=== PATIENT | female | born 1975 | race Caucasian/White ===

== ENCOUNTER 2017-04-05 18:44 | Emergency (ER) | payer MEDICAID, OTHER ==
[2017-04-05 18:58] VITALS: BP 130/83
--- NOTE | 2017-04-05 19:17 | EDM.PDOC ---
ED HPI GENERAL MEDICAL PROBLEM - General Chief Complaint: Lower Extremity Injury/Pain Stated Complaint: right lower extremity pain; chronic Time Seen by Provider: 04/05/17 18:50 Source of Information: Reports: Patient, Family, RN, RN Notes Reviewed History Limitations: Reports: No Limitations - History of Present Illness INITIAL COMMENTS - FREE TEXT/NARRATIVE: Patient presents to the emergency room at [facility] with chronic right ankle pain. The patient states her pain began about 5 months ago. The patient denies any injury or trauma to the right ankle. The patient states that she has been seen by her PCP who had the patient attend physical therapy. The patient states that "I've just been dealing with the pain and nothing has really been done with my ankle." The patient does have a history of previous right foot surgery when she was a teenager. The patient states that physical therapy did not help. The patient states that her pain has progressively gotten much worse over the last 6 days. The patient states that she has developed some sort of a lump over her Achilles tendon. The patient states the pain feels like somebody is squeezing or pinching her Achilles tendon. Onset: Other (5 months ago) Duration: Constant Location: Reports: Lower Extremity, Right Quality: Reports: Sharp, Stabbing Severity: Severe Improves with: Reports: Rest Worsens with: Reports: Movement Context: Denies: Activity, Exercise, Lifting, Trauma Associated Symptoms: Reports: No Other Symptoms Right Ankle Pain Score (Numeric/FACES): 9 - Related Data Allergies Allergy/AdvReac Type Severity Reaction Status Date / Time bupropion HCl Allergy Hives Verified 04/05/17 18:50 [From Wellbutrin] gabapentin Allergy Anxiety Verified 04/05/17 18:50 varenicline [From Chantix] Allergy Other Verified 04/05/17 18:50 Home Meds: Home Meds Levothyroxine [Synthroid] 100 mcg PO ACBREAKFAST 06/05/15 [History] Cyclobenzaprine [Flexeril] 10 mg PO DAILY 04/05/17 [History] Hydrocodone/Acetaminophen [Hydrocodon-Acetaminophn 10-325] 1 tab PO TID [History] Lidocaine 5% [Lidoderm 5%] 700 mg TOP DAILY PRN 04/05/17 [History] Omeprazole [Omeprazole] 20 mg PO DAILY 04/05/17 [History] Sertraline HCl [Sertraline HCl] 100 mg PO DAILY 04/05/17 [History] Zolpidem Tartrate [Zolpidem Tartrate] 5 mg PO BEDTIME PRN 04/05/17 [History] oxyCODONE HCl [Oxycontin] 20 mg PO BID 04/05/17 [History] Past Medical History Musculoskeletal History: Reports: Arthritis - Past Surgical History Neurological Surgical History: Reports: Spinal Fusion Musculoskeletal Surgical History: Reports: Knee Replacement, Other (See Below) Other Musculoskeletal Surgeries/Procedures:: Ankle pain, back surgery Social & Family History - Tobacco Use Smoking Status *Q: Current Every Day Smoker Years of Tobacco use: 18 Packs/Tins Daily: 1 Review of Systems - Review of Systems Review Of Systems: See Below Constitutional: Denies: Chills, Fever, Weakness Respiratory: Denies: Shortness of Breath, Cough Cardiovascular: Denies: Chest Pain, Palpitations Musculoskeletal: Reports: Foot Pain (right ankle pain) Skin: Reports: No Symptoms Neurological: Reports: No Symptoms. Denies: Headache, Numbness, Paresthesia, Tingling Trauma Exam - Physical Exam Exam: See Below Exam Limited By: No Limitations General Appearance: Reports: Alert, No Apparent Distress Respiratory Exam: Reports: No Respiratory Distress, Lungs Clear, Normal Breath Sounds Cardiovascular: Reports: Normal Peripheral Pulses, Regular Rate, Rhythm Extremities: Pain with Movement, Tenderness, Other (mass over the achilles tendon right foot; tender to palpation; patient is able to ambulate, but with pain) Neurologic: Reports: Alert, Oriented x 3 Skin: Reports: Normal Color, Warm/Dry - Rashmi Coma Score Best Eye Response (Huguenot): (4) Open Spontaneously Best Verbal Response (Rashmi): (5) Oriented Best Motor Response (Huguenot): (6) Obeys Commands Huguenot Total: 15 Course - Vital Signs Last Recorded V/S: Last Vital Signs Temp 36.5 C 04/05/17 18:54 Pulse 91 04/05/17 18:54 Resp 16 04/05/17 18:54 BP 130/83 04/05/17 18:54 Pulse Ox 100 04/05/17 18:54 - Orders/Labs/Meds Orders: Active Orders 24 hr Category Date Time Status Ankle Min 3V Rt [CR] Stat Exams 04/05/17 19:17 Taken DME for Discharge [COMM] Routine Oth 04/05/17 20:02 Ordered - Radiology Interpretation Free Text/Narrative:: See scanned report in the EMR Departure - Departure Time of Disposition: 19:59 Disposition: Home, Self-Care 01 Condition: fair Clinical Impression: Tendonitis, Achilles, right - Discharge Information Instructions: Achilles Tendinitis Referrals: Misty Sapp MD [Primary Care Provider] - Forms: ED Department Discharge Additional Instructions: 1. Stay well hydrated and rest 2. Take your home medications as prescribed 3. Use walker boot at all times 4. See your Primary; would recommend an MRI for further evaluation - Problem List Review Problem List Initiated/Reviewed/Updated: Yes - My Orders Last 24 Hours: My Active Orders 04/05/17 19:17 Ankle Min 3V Rt [CR] Stat 04/05/17 20:02 DME for Discharge [COMM] Routine - Assessment/Plan Last 24 Hours: My Active Orders 04/05/17 19:17 Ankle Min 3V Rt [CR] Stat 04/05/17 20:02 DME for Discharge [COMM] Routine
== END 2017-04-05 20:24 | disposition home or self-care (01) ==
LOC: VM.ED 18:44
DX: M76.61 Achilles tendinitis, right leg (principal); M19.90 Unspecified osteoarthritis, unspecified site; F17.210 Nicotine dependence, cigarettes, uncomplicated; Z88.8 Allergy status to other drugs, medicaments and biological substances; Z79.899 Other long term (current) drug therapy; Z96.659 Presence of unspecified artificial knee joint
CPT/HCPCS: 73610-RT; 99283

== ENCOUNTER 2021-09-06 13:12 | Emergency (ER) | payer MEDICAID, OTHER ==
[2021-09-06] MEDS ORDERED: Sodium Chloride 0.9% 10 ML Syringe FLUSH PRN (13:31)
[2021-09-06 13:46] VITALS: BP 137/85; PULSE 65
[2021-09-06 14:02] LABS: CHLORIDE,CL 107 mmol/L (98-107); SODIUM,NA 142 mmol/L (136-145)
[2021-09-06 14:04] LABS: ANION GAP 14.1 mmol/L (5-15)
--- NOTE | 2021-09-06 14:34 | EDM.PDOC ---
ED HPI GENERAL MEDICAL PROBLEM - General Chief Complaint: Abdominal Pain Stated Complaint: SHARP ABDOMINAL PAIN LOWER RIGHT Time Seen by Provider: 09/06/21 13:15 Source of Information: Reports: Patient History Limitations: Reports: No Limitations - History of Present Illness INITIAL COMMENTS - FREE TEXT/NARRATIVE: Pt. presents to ER in [place] with complaints of RLQ abdominal pain that started yesterday. She states that the discomfort is constant, but intensifies at times. She denies any fever or chills. She states that her last BM was this AM. Denies any bloody stools, black/tarry stools, or hematemesis. She states that she is mildly nauseated and did vomit once yesterday. Pt. has a history of previous cholecystectomy and tubal ligation. She still has her appendix. She states that he has had problems with ovarian cysts in the past, and states that she is currently finishing her period. Pt. apparently doctors up in [place], in the [facility]. She identifies Dr. Sapp as her PCP. She is currently on antibiotics due to surgical site infection of L knee. She is not sure of the antibiotic, and really is not able to recall much of her medication history. Onset Date: 09/05/21 Right Lower Abdominal Pain Score (Numeric/FACES): 4 - Related Data Allergies Allergy/AdvReac Type Severity Reaction Status Date / Time bupropion HCl Allergy Hives Verified 09/06/21 13:41 [From Wellbutrin] gabapentin Allergy Anxiety Verified 09/06/21 13:41 trazodone Allergy Headache Verified 09/06/21 13:41 varenicline [From Chantix] Allergy Other Verified 09/06/21 13:41 Home Meds: Home Meds Cyclobenzaprine [Flexeril] 10 mg PO TID PRN 04/05/17 [History] Hydrocodone/Acetaminophen [Hydrocodon-Acetaminophn 10-325] 1 tab PO QID PRN 04/05/17 [History] Omeprazole 20 mg PO DAILY 04/05/17 [History] Sertraline HCl 100 mg PO DAILY 04/05/17 [History] Acetaminophen [Tylenol Extra Strength] 1,000 mg PO QID PRN 09/06/21 [History] Fluticasone Propionate [Flonase] 1 spray NASBOTH BID 09/06/21 [History] L.acidoph,Paracasei, B.lactis [Probiotic] 1 each PO DAILY 09/06/21 [History] LORazepam [Ativan] 0.5 mg PO ASDIRECTED PRN 09/06/21 [History] Levothyroxine Sodium [Levothyroxine] 125 mcg PO DAILY 09/06/21 [History] Loratadine [Claritin] 10 mg PO DAILY 09/06/21 [History] Multivitamin 1 each PO DAILY 09/06/21 [History] Orlistat [Marek] 60 mg PO TIDPC 09/06/21 [History] Propranolol [Inderal LA 24 Hr] 80 mg PO DAILY 09/06/21 [History] SUMAtriptan [Imitrex] 50 mg PO ASDIRECTED PRN 09/06/21 [History] cephALEXin [Cephalexin] 500 mg PO TID 09/06/21 [History] rOPINIRole [Requip] 1.5 mg PO BEDTIME 09/06/21 [History] Past Medical History Musculoskeletal History: Reports: Arthritis, Back Pain, Chronic, RA Other Musculoskeletal History: Vatmjlkob-MWfxtoh-Bsxnfq disease, arthritis of knee, degenerative, Instability of internal left knee prosthesis, spondylosis of lumbar region without myelopathy or radiculopathy, sacroiliac dysfunction, achilles, tendinitis, infected right knee joint, DDD, lumbar stenosis Psychiatric History: Reports: Anxiety, Depression - Past Surgical History Endocrine Surgical History: Reports: Thyroidectomy Neurological Surgical History: Reports: Spinal Fusion Musculoskeletal Surgical History: Reports: Knee Replacement, Other (See Below) Other Musculoskeletal Surgeries/Procedures:: Ankle pain, back surgery Social & Family History - Tobacco Use Tobacco Use Status *Q: Current Every Day Tobacco User Years of Tobacco use: 20 Packs/Tins Daily: 0.5 - Recreational Drug Use Recreational Drug Use: No ED ROS GENERAL - Review of Systems Review Of Systems: See Below Constitutional: Reports: No Symptoms. Denies: Fever, Chills, Malaise, Weakness, Fatigue, Diaphoresis, Weight Loss HEENT: Reports: No Symptoms Respiratory: Reports: No Symptoms Cardiovascular: Reports: No Symptoms Endocrine: Reports: No Symptoms GI/Abdominal: Reports: Abdominal Pain, Constipation (states stool today "a little hard"), Decreased Appetite, Nausea, Vomiting (yesterday). Denies: Black Stool, Bloody Stool, Diarrhea, Difficulty Swallowing, Distension, Flatus, Hematemesis, Hematochezia, Melena, Mucous in Stool : Reports: No Symptoms, Other (current menses) Musculoskeletal: Reports: No Symptoms Skin: Reports: No Symptoms Neurological: Reports: No Symptoms Psychiatric: Reports: No Symptoms Hematologic/Lymphatic: Reports: No Symptoms Immunologic: Reports: No Symptoms ED EXAM, GENERAL - Physical Exam Exam: See Below Exam Limited By: No Limitations General Appearance: Alert, WD/WN, No Apparent Distress Respiratory/Chest: No Respiratory Distress, Lungs Clear, Normal Breath Sounds, No Accessory Muscle Use, Chest Non-Tender Cardiovascular: Normal Peripheral Pulses, Regular Rate, Rhythm, No Edema, No Gallop, No JVD, No Murmur GI/Abdominal: Soft, No Organomegaly, No Mass, Pelvis Stable, Tender (tender in RLQ). No: No Distention, Guarding, Rigid, Mass, Hepatomegaly, Splenomegaly (Female) Exam: Deferred Rectal (Female) Exam: Deferred Neurological: Alert, Oriented, CN II-XII Intact, Normal Cognition, No Zenobia r/Sensory Deficits Psychiatric: Normal Affect, Normal Mood Skin Exam: Warm, Dry, Intact, Normal Color, No Rash Course - Vital Signs Last Recorded V/S: Last Vital Signs Temp 36.8 C 09/06/21 13:15 Pulse 65 09/06/21 13:15 Resp 16 09/06/21 13:15 BP 137/85 09/06/21 13:15 Pulse Ox 99 09/06/21 13:15 - Orders/Labs/Meds Orders: Active Orders 24 hr Category Date Time Status Sodium Chloride 0.9% [Saline Flush] Med 09/06/21 13:31 Active 10 ml FLUSH ASDIRECTED PRN Peripheral IV Insertion Adult [OM.PC] Routine Oth 09/06/21 13:31 Ordered Medication Orders Sodium Chloride (Sodium Chloride 0.9% 10 Ml Syringe) 10 ml FLUSH ASDIRECTED PRN PRN Reason: Keep Vein Open Labs: Laboratory Tests 09/06/21 09/06/21 09/06/21 Range/Units 13:25 13:25 13:30 WBC 8.4 (4.0-10.0) x10^3/uL RBC 3.49 L (4.00-5.50) x10^6/uL Hgb 12.2 (12.0-16.0) g/dL Hct 34.3 (33.0-47.0) % MCV 98.3 H (78.0-93.0) fL MCH 35.0 H (26.0-32.0) pg MCHC 35.6 (32.0-36.0) g/dL RDW Coeff of Tobi 13.1 (10.0-15.0) % Plt Count 289 (130-400) x10^3/uL Immature Gran % (Auto) 0.10 (0.00-0.43) % Neut % (Auto) 52.0 (50.0-80.0) % Lymph % (Auto) 35.9 (25.0-50.0) % [place] % (Auto) 9.4 (2.0-11.0) % Eos % (Auto) 2.5 (0.0-4.0) % Baso % (Auto) 0.1 L (0.2-1.2) % Neut # (Auto) 4.4 (1.8-7.7) x10^3/uL Lymph # (Auto) 3.0 (1.0-4.8) x10^3/uL [place] # (Auto) 0.8 (0.0-0.8) x10^3/uL Eos # (Auto) 0.2 (0.0-0.5) x10^3/uL Baso # (Auto) 0.0 (0.0-0.2) x10^3/uL Immature Gran # (Auto) 0.01 (0.00-0.07) x10^3/uL PT (9.9-12.5) SEC INR (2.0-3.5) APTT (25.6-32.8) SEC Sodium (136-145) mmol/L Potassium (3.5-5.1) mmol/L Chloride (98-107) mmol/L Carbon Dioxide (21-32) mmol/L Anion Gap (5-15) mmol/L BUN (7-18) mg/dL Creatinine (0.55-1.02) mg/dL Est Cr Clr Drug Dosing mL/min Estimated GFR (MDRD) Glucose (70-99) mg/dL Calcium (8.5-10.1) mg/dL Corrected Calcium (8.5-10.1) mg/dL Phosphorus (2.6-4.7) mg/dL Magnesium (1.8-2.4) mg/dL Total Bilirubin (0.2-1.0) mg/dL AST (15-37) U/L ALT (14-59) U/L Alkaline Phosphatase (46-116) U/L C-Reactive Protein (<=0.9) mg/dL Total Protein (6.4-8.2) g/dL Albumin (3.4-5.0) g/dL Globulin Albumin/Globulin Ratio Amylase (25-115) U/L Lipase (73-393) U/L Urine Color Yellow (YELLOW) Urine Appearance Clear (CLEAR) Urine pH 5.5 (5.0-8.0) Ur Specific Gardners 1.020 Urine Protein Negative (NEGATIVE) mg/dL Urine Glucose (UA) Negative (NEGATIVE) mg/dL Urine Ketones Negative (NEGATIVE) mg/dL Urine Occult Blood Small H (NEGATIVE) Urine Nitrite Negative (NEGATIVE) Urine Bilirubin Negative (NEGATIVE) Urine Urobilinogen 0.2 (0.2) EU/dL Ur Leukocyte Esterase Negative (NEGATIVE) Urine RBC 0-5 (NOT SEEN) /HPF Urine WBC 0-5 (NOT SEEN) /HPF Ur Squamous Epith Cells Rare (NOT SEEN) /HPF Urine Bacteria Rare (NOT SEEN) /HPF Urine Mucus Not seen (NOT SEEN) /LPF Urine HCG, Qual Negative (NEGATIVE) 09/06/21 09/06/21 09/06/21 Range/Units 13:30 13:30 13:30 WBC (4.0-10.0) x10^3/uL RBC (4.00-5.50) x10^6/uL Hgb (12.0-16.0) g/dL Hct (33.0-47.0) % MCV (78.0-93.0) fL MCH (26.0-32.0) pg MCHC (32.0-36.0) g/dL RDW Coeff of Tobi (10.0-15.0) % Plt Count (130-400) x10^3/uL Immature Gran % (Auto) (0.00-0.43) % Neut % (Auto) (50.0-80.0) % Lymph % (Auto) (25.0-50.0) % [place] % (Auto) (2.0-11.0) % Eos % (Auto) (0.0-4.0) % Baso % (Auto) (0.2-1.2) % Neut # (Auto) (1.8-7.7) x10^3/uL Lymph # (Auto) (1.0-4.8) x10^3/uL [place] # (Auto) (0.0-0.8) x10^3/uL Eos # (Auto) (0.0-0.5) x10^3/uL Baso # (Auto) (0.0-0.2) x10^3/uL Immature Gran # (Auto) (0.00-0.07) x10^3/uL PT 10.7 (9.9-12.5) SEC INR 1.0 L (2.0-3.5) APTT 22.4 L (25.6-32.8) SEC Sodium 142 (136-145) mmol/L Potassium 4.1 (3.5-5.1) mmol/L Chloride 107 (98-107) mmol/L Carbon Dioxide 25 (21-32) mmol/L Anion Gap 14.1 (5-15) mmol/L BUN 17 (7-18) mg/dL Creatinine 0.7 (0.55-1.02) mg/dL Est Cr Clr Drug Dosing 78.58 mL/min Estimated GFR (MDRD) > 60 Glucose 101 H (70-99) mg/dL Calcium 8.7 (8.5-10.1) mg/dL Corrected Calcium 8.8 (8.5-10.1) mg/dL Phosphorus 3.9 (2.6-4.7) mg/dL Magnesium 1.9 (1.8-2.4) mg/dL Total Bilirubin 0.3 (0.2-1.0) mg/dL AST 16 (15-37) U/L ALT 22 (14-59) U/L Alkaline Phosphatase 68 (46-116) U/L C-Reactive Protein < 0.2 (<=0.9) mg/dL Total Protein 6.8 (6.4-8.2) g/dL Albumin 3.9 (3.4-5.0) g/dL Globulin 2.9 Albumin/Globulin Ratio 1.34 Amylase 48 (25-115) U/L Lipase 152 (73-393) U/L Urine Color (YELLOW) Urine Appearance (CLEAR) Urine pH (5.0-8.0) Ur Specific Gardners Urine Protein (NEGATIVE) mg/dL Urine Glucose (UA) (NEGATIVE) mg/dL Urine Ketones (NEGATIVE) mg/dL Urine Occult Blood (NEGATIVE) Urine Nitrite (NEGATIVE) Urine Bilirubin (NEGATIVE) Urine Urobilinogen (0.2) EU/dL Ur Leukocyte Esterase (NEGATIVE) Urine RBC (NOT SEEN) /HPF Urine WBC (NOT SEEN) /HPF Ur Squamous Epith Cells (NOT SEEN) /HPF Urine Bacteria (NOT SEEN) /HPF Urine Mucus (NOT SEEN) /LPF Urine HCG, Qual (NEGATIVE) Meds: Medications Generic Name Dose Route Start Last Admin Trade Name Freq PRN Reason Stop Dose Admin Sodium Chloride 10 ml 09/06/21 13:31 Sodium Chloride 0.9% 10 Ml Syringe FLUSH ASDIRECTED PRN Keep Vein Open - Radiology Interpretation Free Text/Narrative:: CT abdomen and pelvis with contrast obtained. No appendicitis, diverticulitis, abscess, or other significant pathology noted. Departure - Departure Time of Disposition: 15:30 Disposition: Home, Self-Care 01 Clinical Impression: Constipation - Discharge Information Instructions: Constipation, Adult Referrals: Misty Sapp MD [Primary Care Provider] - Forms: ED Department Discharge Additional Instructions: Start miralax 17 gm once daily Increase consumption of water Decrease consumption of fatty foods. Eat more vegetables. Recheck in clinic in 7-10 days. Sepsis Event Note (ED) - Evaluation Sepsis Screening Result: No Definite Risk - Focused Exam Vital Signs: Vital Signs Temp Pulse Resp BP Pulse Ox 09/06/21 13:15 36.8 C 65 16 137/85 99 - Problem List Review Problem List Initiated/Reviewed/Updated: Yes - My Orders Last 24 Hours: My Active Orders 09/06/21 13:31 Sodium Chloride 0.9% [Saline Flush] 10 ml FLUSH ASDIRECTED PRN Peripheral IV Insertion Adult [OM.PC] Routine - Assessment/Plan Last 24 Hours: My Active Orders 09/06/21 13:31 Sodium Chloride 0.9% [Saline Flush] 10 ml FLUSH ASDIRECTED PRN Peripheral IV Insertion Adult [OM.PC] Routine Plan: Start miralax 17 gm once daily Increase consumption of water Decrease consumption of fatty foods. Eat more vegetables. Recheck in clinic in 7-10 days.
--- NOTE | 2021-09-06 15:21 | CT ---
[id number] CT/CT Abdomen Pelvis W IV EXAM: CT Abdomen Pelvis W IV CLINICAL DATA: RLQ ABD PAIN COMPARISON STUDY: None. FINDINGS: Lung bases are clear. Liver, spleen, pancreas, adrenal glands, and kidneys are unremarkable. Cholecystectomy. No small bowel obstruction or inflammation. Few scattered colonic diverticula. No colitis or diverticulitis. Appendix is normal. No lymphadenopathy, free fluid, or pneumoperitoneum. Uterus and adnexal regions are unremarkable. Urinary bladder is normal. Discectomy and decompression with hardware fusion at L4-5 and L5-S1. IMPRESSION: Negative for appendicitis or other acute findings in the abdomen/pelvis. Other findings are described above. Harry Palma MD 09/06/21 [id number] Thank you for allowing us to participate in the care of your patient.
== END 2021-09-06 15:45 | disposition home or self-care (01) ==
LOC: VM.ED 13:12
DX: K59.00 Constipation, unspecified (principal); M06.9 Rheumatoid arthritis, unspecified; Z72.0 Tobacco use; Z88.8 Allergy status to other drugs, medicaments and biological substances; Z88.5 Allergy status to narcotic agent; Z79.899 Other long term (current) drug therapy
CPT/HCPCS: 74177; 80053; 81001; 81025; 82150; 83690; 83735; 84100; 85025; 85610; 85730; 86140; 99284; 99284-25

== ENCOUNTER 2023-04-12 11:30 | Emergency (ER) | payer MEDICAID ==
[2023-04-12 12:21] VITALS: BP 134/87; PULSE 67
[2023-04-12] MEDS ORDERED: Orphenadrine 60 MG/2 ML Inj IM ONE (12:59)
[2023-04-12] MEDS ORDERED: Ketorolac 30 MG/ML SDV IM ONE (12:59)
== END 2023-04-12 13:35 | disposition home or self-care (01) ==
LOC: VM.ED 11:30
DX: S83.91XA Sprain of unspecified site of right knee, initial encounter (principal); S70.00XA Contusion of unspecified hip, initial encounter; M06.9 Rheumatoid arthritis, unspecified; E03.9 Hypothyroidism, unspecified; Z88.8 Allergy status to other drugs, medicaments and biological substances; Z88.5 Allergy status to narcotic agent; Z79.899 Other long term (current) drug therapy; Z72.0 Tobacco use; W01.0XXA Fall on same level from slipping, tripping and stumbling without subsequent striking against object, initial encounter; Y92.71 Barn as the place of occurrence of the external cause
CPT/HCPCS: 73000; 73562; 96372; 99283; J1885; J2360; 99284

== ENCOUNTER 2025-09-19 21:26 | Emergency (ER) | payer MEDICAID ==
[2025-09-19 21:37] VITALS: PULSE 72
[2025-09-19] MEDS: Ketorolac 30 MG/ML SDV IM ONE (22:57)
[2025-09-20 00:17] VITALS: BP 122/84
== END 2025-09-20 00:13 | disposition home or self-care (01) ==
LOC: VM.ED 21:26 → SUPCPDRO 21:26 → VM.ED 09-20 00:13
DX: S22.43XA Multiple fractures of ribs, bilateral, initial encounter for closed fracture (principal); M25.512 Pain in left shoulder; G89.4 Chronic pain syndrome; G89.29 Other chronic pain; E03.9 Hypothyroidism, unspecified; Z88.8 Allergy status to other drugs, medicaments and biological substances; Z88.5 Allergy status to narcotic agent; Z79.899 Other long term (current) drug therapy; W01.0XXA Fall on same level from slipping, tripping and stumbling without subsequent striking against object, initial encounter; Y92.002 Bathroom of unspecified non-institutional (private) residence as the place of occurrence of the external cause
CPT/HCPCS: 71250; 73030-LT; 96372; 99284; A9270-GY; J1885